=== PATIENT | female | born 1960 | race Caucasian/White ===

== ENCOUNTER 2018-07-12 16:11 | Inpatient (IN) | payer OTHER ==
[~2018-07-12] VITALS: Ht 167.6 cm; Wt 60.5 kg
[2018-07-12] MEDS ORDERED: BAYER CHEWABLE81 MG PO (16:35)
[2018-07-12 16:38] VITALS: BP 148/92; BMI 22.3
[2018-07-12 17:15] LABS: HEMATOCRIT 40.5 % (36.0-48.0); HEMOGLOBIN 13.7 g/dL (12-16); MCH 30.6 pg (26.0-34.0); MCHC 33.8 g/dL (31.0-37.0); MCV 90.6 fL (80.0-100.0); MEAN PLATELET VOLUME 9.5 fL (7.4-10.4); PLATELET COUNT 300 10x3/uL (130-400); RBC 4.47 10x6/uL (4.00-5.40); RDW 13.3 % (11.5-14.5); WBC 25.5 10x3/uL (4.8-10.8)
--- NOTE | 2018-07-12 17:16 | NUR ---
22 GUAGE PIV INSERTED X2 STICKS TO L.WRIST. PT SITTING UP IN BEDSIDE CHAIR A DIRECT ADMIT. AUTO OVERHAULER WORKUP COMPLETED. DISCUSS WITH PRIMARY NURSE JO AT BEDSIDE. NO CURRENT NEEDS. WILL CTM.
[2018-07-12 17:24] LABS: ALBUMIN 3.7 g/dL (3.4-5.0); ANION GAP 14.6 mmol/L (8-16); BILIRUBIN - DIRECT 0.15 mg/dL (0.00-0.30); BILIRUBIN - INDIRECT 0.38 mg/dL (0.00-1.00); BILIRUBIN - TOTAL 0.53 mg/dL (0.2-1.3); CALCIUM 9.4 mg/dL (8.5-10.1); CARBON DIOXIDE 28.3 mmol/L (21.0-32.0); POTASSIUM - SERUM 3.9 mmol/L (3.5-5.1); PROTEIN - SERUM 7.8 g/dL (6.4-8.2)
[2018-07-12 17:49] LABS: EOSINOPHILS 1 % (0-7); LYMPHOCYTES 4 % (15-50); MONOCYTES 5 % (2-11); NEUTROPHILS 90 % (40-80)
[2018-07-12 17:50] LABS: PLATELET ESTIMATE NORMAL; TEAR DROP CELLS 1+
[2018-07-12 19:03] LABS: APPEARANCE CLEAR (CLEAR); BILIRUBIN NEGATIVE (NEGATIVE); COLOR STRAW (YELLOW); GLUCOSE NEGATIVE (NEGATIVE); KETONE NEGATIVE (NEGATIVE); NITRITE NEGATIVE (NEGATIVE); PROTEIN NEGATIVE (NEGATIVE); SPECIFIC GRAVITY 1.005 (1.005-1.020); UROBILINOGEN NORMAL (NORMAL)
--- NOTE | 2018-07-12 19:30 | NUR ---
RECEIVED REPORT, WILL ASSUME CARE OF PT, PT VISITING WITH FAMILY, ASKING IF ORDER ANYTHING FOR PAIN, TOLD HER HE ORDER NORCO, BED IS LOW, SRX2, CALL LIGHT IN REACH, WILL CONTINUE PLAN OF CARE
[2018-07-12 20:00] VITALS: BP 120/71
--- NOTE | 2018-07-12 20:18 | HP ---
PATIENT: DINA AJ MEDICAL RECORD: [id number] ACCOUNT: [id number] LOCATION:[address] : 58 ADMISSION DATE: 07/12/18 PCP: FREDDY LAWSON MD HISTORY AND PHYSICAL EXAMINATION REASON FOR ADMISSION: Chest pain with cough and fevers. HISTORY OF PRESENT ILLNESS: The patient is a 58-year-old female who was seen in the office last week for presumed pneumonia. She had developed dry cough and fever as high as 101.5. She was tested for the flu and negative and then noted to have increasing left pleuritic chest pain. Chest x-ray showed early left lower lobe infiltrate. Her sat was 99% at that time and she was not ill appearing and was treated with IM Rocephin times 2 doses serially and Zithromax. She improved to the point of being afebrile over the weekend; but this morning, developed fever again to 101-102, increasing chest pain, and productive cough. Her sats are now down to 94%. Chest x-ray shows progression of left lobe infiltrate and now has pleural effusion. She is now being admitted for inpatient therapy for community-acquired pneumonia. PAST MEDICAL HISTORY: Hypothyroidism, rheumatoid arthritis, osteoporosis, remote history of granulomatous pneumonia, and acne. PAST SURGICAL HISTORY: Tubal ligation. SOCIAL HISTORY: She is . Nonsmoker and nondrinker. 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 FAMILY HISTORY: Father is alive, history of arthritis. Mother is alive with history of Fuchs endothelial corneal dystrophy. Maternal grandmother with colon cancer. MEDICATIONS: Levothyroxine 112 mcg p.o. q.a.m. a.c.; aspirin 81 mg p.o. daily; spironolactone 50 mg daily; and Plaquenil 200 mg daily, which she has not taken in the last few days. ALLERGIES: SULFONAMIDES AND HYCODAN. REVIEW OF SYSTEMS: GENERAL: She has had poor appetite for 2 weeks with intermittent fever as high as 101.5 yesterday. She is fatigued. HEENT: No recent visual change, sinus congestion, sore throat, or hearing difficulty. RESPIRATORY: Intense pleuritic pain in her left anterior chest and flank on deep inspiration. She has had cough that has been mildly productive. Denies hemoptysis. She has shortness of breath when she walks. Pain is worse on lying flat on her left side. CARDIAC: No palpitations, PND, or orthopnea. GASTROINTESTINAL: Some nausea. No vomiting, change in stools, blood per rectum, or diarrhea. GENITOURINARY: No incontinence or dysuria. GYNECOLOGICAL: No vaginal bleeding. 2. MUSCULOSKELETAL: She has had some arthralgias in the lumbar spine with fever. Otherwise, joints have been fairly stable. INTEGUMENT: No rash or itching. PSYCHIATRIC: Denies depressed mood. HISTORY AND PHYSICAL [id number] DINA JA PHYSICAL EXAMINATION: VITAL SIGNS: Her temperature is 99 degrees Fahrenheit, her pulse is 115, her sats are 94% on room air, and blood pressure is 122/84 with weight of 141 pounds and BMI of 22.8 with height of 5 feet 6 inches. GENERAL: The patient appears mildly ill. She is not tachypneic. She is oriented. HEENT: Normocephalic. Eyes are clear. Oropharynx unremarkable. NECK: Supple. CHEST: Clear on the right. In her left lung, she has crackles in the left base with E:A changes posteriorly. She has pain on deep inspiration. No rash appreciated. HEART: Tachycardic without murmur. ABDOMEN: Soft and nontender. EXTREMITIES: No CC&E. NEUROLOGIC: Oriented to person, place, and time. Cranial nerves are intact. Gait normal. SKIN: She has malar flushing, otherwise unremarkable. LABORATORY DATA: Her labs are currently pending. DIAGNOSTIC DATA: Chest x-ray shows left lower lobe infiltrate with pleural effusion progressed from 3 days ago. ASSESSMENT: 1. Community-acquired left lower lobe pneumonia. 2. Left pleural effusion. 3. Pleurisy. 4. Rheumatoid arthritis. PLAN: The patient will hold Plaquenil currently. She will be cultured and placed on IV Levaquin and Zithromax, pulmonary toilet with DuoNeb updrafts. Further workup pending clinical course. TRANSINT:[id number] Voice Confirmation ID: [id number] DOCUMENT ID: [id number] FREDDY LAWSON MD at 2018 CC: [id number] DICTATION DATE: 07/12/18 1646 TENANT SELECTOR: 07/12/18 1807 [place] [address]
--- NOTE | 2018-07-12 22:00 | NUR ---
PT SPOKE WITH DR. LAWSON, HE SAID SHE SHOULD TAKE NORCO, I GAVE ORDER
[2018-07-13] VITALS: BP 97/64
[2018-07-13 04:20] VITALS: BP 94/53
--- NOTE | 2018-07-13 04:46 | NUR ---
I have reviewed this patient and I concur with the Shift Assessment completed by the Licensed Practical Nurse today this shift.
--- NOTE | 2018-07-13 07:00 | NUR ---
RECEIVED BEDSIDE SHIFT REPORT. ASSUMED CARE OF PATIENT. CALL LIGHT WITHIN REACH. PATIENT SITTING UP IN BED WITH EYES OPEN, RESP EVEN AND UNLABORED. NO DISTRESS. COMPLAINS OF PLEURITIC CHEST PAIN. NO DISTRESS.
--- NOTE | 2018-07-13 07:19 | NUR ---
MEDICATED FOR PAIN AT THIS TIME. HERE FOR AM ROUNDS AND WILL ORDER TORADOL IM FOR BETTER PAIN CONTROL.
--- NOTE | 2018-07-13 07:40 | NUR ---
PATIENT OFF UNIT VIA WHEELCHAIR FOR CXR.
--- NOTE | 2018-07-13 08:13 | NUR ---
RETURN TO UNIT FROM RADIOLOGY.
[2018-07-13 08:55] LABS: BASOPHILS 0.1 % (0-2); EOSINOPHILS 0.7 % (0-7); HEMATOCRIT 36.6 % (36.0-48.0); HEMOGLOBIN 12.3 g/dL (12-16); IMMATURE GRANULOCYTES 0.3 % (0-5); LYMPHOCYTES 3.4 % (15-50); MCH 30.6 pg (26.0-34.0); MCHC 33.6 g/dL (31.0-37.0); MEAN PLATELET VOLUME 9.7 fL (7.4-10.4); MONOCYTES 7.2 % (2-11); NEUTROPHILS 88.3 % (40-80); PLATELET COUNT 256 10x3/uL (130-400); RBC 4.02 10x6/uL (4.00-5.40); RDW 13.5 % (11.5-14.5); WBC 18.4 10x3/uL (4.8-10.8)
[2018-07-13 09:05] LABS: ANION GAP 12.9 mmol/L (8-16); CALCIUM 9.1 mg/dL (8.5-10.1); CARBON DIOXIDE 29.2 mmol/L (21.0-32.0); CREATININE - SERUM 1.1 mg/dL (0.6-1.3)
--- NOTE | 2018-07-13 09:05 | NUR ---
TORADOL IM ADMINISTERED AT THIS TIME FOR PAIN TO CHEST. NO DISTRESS. CALL LIGHT WITHIN REACH.
[2018-07-13 09:07] LABS: POTASSIUM - SERUM 3.1 mmol/L (3.5-5.1)
[2018-07-13 12:15] VITALS: BP 120/72
[2018-07-13 12:42] VITALS: BMI 22.4
--- NOTE | 2018-07-13 14:20 | NUR ---
SHOWER COMPLETE. IV FLUIDS RECONNECTED AND INFUSING ORDERED.
--- NOTE | 2018-07-13 14:29 | NUR ---
K+ SUPPLEMENT INITIATED AT THIS TIME. NO DISTRESS.
[2018-07-13 15:37] VITALS: BP 128/78
--- NOTE | 2018-07-13 17:10 | NUR ---
MEDICATED FOR PAIN AT THIS TIME. NO DISTRESS.
--- NOTE | 2018-07-13 17:43 | NUR ---
AT BEDSIDE WITH PATIENTS . RECOMMENDED INCENTIVE SPIROMETER AND FLUTTER VALVE FOR PATIENT AND IF NO IMPROVEMENT MAY SUGGEST A CT SCAN. RESPIRATORY THERAPY MADE AWARE OF NEW ORDERS.
--- NOTE | 2018-07-13 19:10 | NUR ---
AWAKE AND ALERT BED LOW AND CALL [facility] IN REACH PT IS ASKING FOR TORADOL. LCTA PULSES PRESENT. D5 AND 1/2 TO LFA AT 1OO. ASSISTED WITH COMFORT AND PROVIDED PT EDUCATION
[2018-07-13 20:38] VITALS: BP 113/72
[2018-07-13 23:40] VITALS: BP 115/73
--- NOTE | 2018-07-14 03:51 | NUR ---
I have reviewed this patient and I concur with the Shift Assessment completed by the Licensed Practical Nurse today this shift.
[2018-07-14 05:21] VITALS: BP 120/72
--- NOTE | 2018-07-14 07:20 | NUR ---
PT SITTING UP IN BED. ALERT AND ORIENTED. AT BEDSIDE. PT HAS NO FURTHER NEEDS AT THIS TIME. BED LOW. CL IN REACH. WILL CONTINUE [facility] PLAN OF CARE.
--- NOTE | 2018-07-14 10:10 | NUR ---
PT TAKEN FOR SCAN VIA WC.
[2018-07-14 13:09] VITALS: BP 109/63
--- NOTE | 2018-07-14 14:19 | NUR ---
I have reviewed this patient and I concur with the Shift Assessment completed by the Licensed Practical Nurse today this shift.
--- NOTE | 2018-07-14 15:00 | NUR ---
PT TOOK SHOWER BY SELF AND CHANGED INTO CLEAN SCRUBS.
--- NOTE | 2018-07-14 15:26 | NUR ---
CALLED FOR MEDIUM PAIR OF SCRUBS.
[2018-07-14 17:03] VITALS: BP 121/81
--- NOTE | 2018-07-14 19:20 | NUR ---
AWAKE WIT VISITOR IN ROOM SR X2 AND CALL LIGHT IN REACH BED IS LOW...PT EXPRESSES NEED FOR TYLENOL AND SLEEP AID CLOSER TO 9PM. LCTA AND SKIN WARM AND DRY BOWEL SOUNDS X2
[2018-07-14 20:57] VITALS: BP 121/78
--- NOTE | 2018-07-14 21:49 | NUR ---
UP WALKING THE PICAYUNE AROUND THE UNIT AND TOLERATING WELL.
[2018-07-14 23:59] VITALS: BP 130/89
--- NOTE | 2018-07-15 02:36 | NUR ---
I have reviewed this patient and I concur with the Shift Assessment completed by the Licensed Practical Nurse today this shift.
--- NOTE | 2018-07-15 02:39 | NUR ---
I have reviewed this patient and I concur with the Shift Assessment completed by the Licensed Practical Nurse today this shift.
[2018-07-15 05:27] VITALS: BP 121/79
[2018-07-15 05:48] LABS: BASOPHILS 0.1 % (0-2); EOSINOPHILS 1.6 % (0-7); HEMATOCRIT 33.6 % (36.0-48.0); HEMOGLOBIN 11.4 g/dL (12-16); IMMATURE GRANULOCYTES 0.4 % (0-5); MCH 30.2 pg (26.0-34.0); MCHC 33.9 g/dL (31.0-37.0); MCV 89.1 fL (80.0-100.0); MEAN PLATELET VOLUME 9.9 fL (7.4-10.4); MONOCYTES 6.9 % (2-11); PLATELET COUNT 259 10x3/uL (130-400); RBC 3.77 10x6/uL (4.00-5.40); RDW 13.7 % (11.5-14.5); WBC 16.4 10x3/uL (4.8-10.8)
[2018-07-15 05:51] LABS: ANION GAP 10.7 mmol/L (8-16); CALCIUM 9.2 mg/dL (8.5-10.1); CARBON DIOXIDE 28.3 mmol/L (21.0-32.0); PROTEIN - SERUM 6.8 g/dL (6.4-8.2)
[2018-07-15 05:59] LABS: APTT 29.3 SECONDS (22.8-39.4); INR 1.37 (0.85-1.17); PROTIME 16.3 SECONDS (11.6-15.0)
--- NOTE | 2018-07-15 07:37 | NUR ---
ROUNDING DONE WITH PATIENT BEING NPO FOR PROCEDURE TODAY. LEFT FA PIV SEEN WITH D 5 1/2 NS INFUSING AT 50 CC/HR. ON EP, K+ IS 4.0. ROOM AIR. DENIES NEEDS. WILL CONTINUE TO MONITOR FOR NEEDS.
[2018-07-15 09:07] VITALS: BP 147/82
--- NOTE | 2018-07-15 09:34 | NUR ---
TO RADIOLOGY VIA BED.
--- NOTE | 2018-07-15 11:00 | NUR ---
RETURNS FROM IR WITH LEFT POSTERIOR CHEST TUBE IN PLACE. SET AT 20 CM SUCTION, DRESSING IS C/D/I. POPSICLE GIVEN PER REQUEST.
[2018-07-15 11:38] LABS: PROTEIN - BODY FLUID 4.4 G/DL
[2018-07-15 12:44] VITALS: BP 124/79
--- NOTE | 2018-07-15 13:10 | NUR ---
DENIES NEEDS POST LUNCH. BRUSHING TEETH, STILL ON BED REST. MOTHER IS AT BEDSIDE.
[2018-07-15 13:34] LABS: NEUT - BF 98 %
--- NOTE | 2018-07-15 15:06 | NUR ---
ASSSITED TO BSC TO VOID, VOIDS EASILY.
--- NOTE | 2018-07-15 16:43 | NUR ---
NORCO 1 TAB GIVEN FOR PAIN TO BACK 10/04.
[2018-07-15 17:09] VITALS: BP 136/83
--- NOTE | 2018-07-15 19:15 | NUR ---
REPORT RECIEVED AND ROUNDING COMPLETE PT LAYING IN BED ON RIGHT SIDE. PT VISTING WIHT HER . PT HAS CHEST TUBE IN LEFT POST 20 METER SUCTION. INCISION C/D/I. PT ALERT AND ORIENTED. PT STATES NO NEEDS AT THIS TIME CALL LIGHT WITHIN REACH AND BED IN LOWEST POSTION.
[2018-07-15 20:00] VITALS: BP 126/87
[2018-07-16] VITALS: BP 111/72; BP 118/74
--- NOTE | 2018-07-16 00:32 | NUR ---
PT COMPLAINS OF BACK PAIN. PAIN MEDS GIVEN.
--- NOTE | 2018-07-16 02:25 | NUR ---
I have reviewed this patient and I concur with the Shift Assessment completed by the Licensed Practical Nurse today this shift.
[2018-07-16 04:00] VITALS: BP 113/80
[2018-07-16 06:40] LABS: BASOPHILS 0.2 % (0-2); EOSINOPHILS 3.6 % (0-7); HEMATOCRIT 32.3 % (36.0-48.0); HEMOGLOBIN 10.9 g/dL (12-16); IMMATURE GRANULOCYTES 0.2 % (0-5); LYMPHOCYTES 8.8 % (15-50); MCH 30.3 pg (26.0-34.0); MCHC 33.7 g/dL (31.0-37.0); MCV 89.7 fL (80.0-100.0); MEAN PLATELET VOLUME 9.4 fL (7.4-10.4); MONOCYTES 8.8 % (2-11); NEUTROPHILS 78.4 % (40-80); PLATELET COUNT 262 10x3/uL (130-400); RDW 13.9 % (11.5-14.5); WBC 11.3 10x3/uL (4.8-10.8)
--- NOTE | 2018-07-16 07:51 | NUR ---
PT REQUESTS PAIN PILLS. PLESANT DEMENOR.
[2018-07-16 08:17] VITALS: BP 135/78
--- NOTE | 2018-07-16 08:48 | NUR ---
IR ADMINED CATH. TURNED OFF CHEST TUBE. WILL TURN BACK ON AT [id number]
[2018-07-16 09:16] LABS: IMMUNOGLOBULIN A 193 mg/dL (87-352); IMMUNOGLOBULIN G 631 mg/dL (700-1600)
--- NOTE | 2018-07-16 11:09 | NUR ---
I have reviewed this patient and I concur with the Shift Assessment completed by the Licensed Practical Nurse today this shift.
--- NOTE | 2018-07-16 11:12 | NUR ---
RESTARTED SUCTION @20MM/HR.
[2018-07-16 12:22] VITALS: BP 136/74
--- NOTE | 2018-07-16 14:24 | NUR ---
Regular diet with 75% average po intake Some visitors bringing in foods from outside the hospital Some nausea/vomiting reported by pt Provided pt cafe menu to increase options Reviewed chart RD following
[2018-07-16 16:08] VITALS: BP 133/78
[2018-07-16 17:09] LABS: ACID FAST SMEAR Negative (()); AFB SPECIMEN PROCESSING Not Indicated (())
[2018-07-16 18:08] LABS: ANA REFLEX - DIRECT Negative (Negative)
[2018-07-16 20:00] VITALS: BP 115/70
--- NOTE | 2018-07-16 20:48 | NUR ---
INITIASL ORUNDS COMPLETED AT 1915 HRS. PT DENIED ANY DISCOMFORT. ASSESSMENT COMPLETED AT 2000 HRS. VSS. ALERT AND ORIENTED TO PERSON, PLACE AND TIME. KAY. LUNGS DIMINISHED IN BASES BILAT. CT TO L BACK AT 20CM SUCTION DRAINING SMALL AMOUNT OF SEROUS FLUID. NOROCO PO GIVEN AT 2000 HRS FOR C/O INCISINAL PAIN. WILL CONTINUE TO MONITOR. SR UP X2, CALL LIGHT WITHIN REACH.
--- NOTE | 2018-07-16 21:36 | NUR ---
PM MED GIVEN. JELLO GIVEN PER REQUEST. CALL LIGHT WITHIN REACH.
--- NOTE | 2018-07-16 22:57 | NUR ---
PT RESTING WITH EYES CLOSED. RESP EVEN AND REGULAR. SR UP X2, CALL LIGHT WTHIN REACH.
--- NOTE | 2018-07-17 00:59 | NUR ---
ZOFRAN 4MG PO GIVEN FOR C/O NAUSEA. WILL CONTINUE TO MONITOR.
--- NOTE | 2018-07-17 02:04 | NUR ---
NOROC 5/325 PO GIVEN FOR C/O INCISIONAL PAIN. SR UP X2,CALL LIGHT WITHIN REACH.
--- NOTE | 2018-07-17 04:02 | NUR ---
PT AWAKE; NO DISTRESS NOTED. STATES HAS MINOR PAIN AT THIS TIME. SR UP X2, CALL LIGHT WITHIN REACH.
[2018-07-17 04:23] VITALS: BP 108/68
[2018-07-17 05:55] LABS: CALC OSMOLALITY 269 mosm/kg (275-300); CALCIUM 8.3 mg/dL (8.5-10.1); CARBON DIOXIDE 26.5 mmol/L (21.0-32.0); CHLORIDE - SERUM 101 mmol/L (98-107); CREATININE - SERUM 0.8 mg/dL (0.6-1.3); GLUCOSE 88 mg/dL (74-106); POTASSIUM - SERUM 3.8 mmol/L (3.5-5.1); SODIUM 136 mmol/L (136-145); UREA NITROGEN 9 mg/dL (7-18); eGFR NON AFRICAN AMERICAN 78 mL/min (90-120)
--- NOTE | 2018-07-17 06:34 | NUR ---
VSS THROUGHOUT NIGHT. PT STATES NORCO CONTROLS PAINA ND ZOFRAN CONTROLS NAUSEA. NEEDS MET; CALL LIGHT WITHIN REACH.
--- NOTE | 2018-07-17 07:27 | NUR ---
PT AWAKE WHEN I ENTERED, NO COMPLAINTS OR CONCERNS. STATES HER APIN IS MUCH MORE UNDER CONTROL TODAY. CL IN REACH. SRX 2.
[2018-07-17 09:23] VITALS: BP 116/74
[2018-07-17 11:38] VITALS: BP 120/72
[2018-07-17 13:46] LABS: BASOPHILS 0.2 % (0-2); HEMATOCRIT 38.1 % (36.0-48.0); IMMATURE GRANULOCYTES 0.6 % (0-5); LYMPHOCYTES 4.9 % (15-50); MCH 30.7 pg (26.0-34.0); MCHC 34.4 g/dL (31.0-37.0); MCV 89.2 fL (80.0-100.0); MEAN PLATELET VOLUME 8.8 fL (7.4-10.4); MONOCYTES 8.6 % (2-11); NEUTROPHILS 83.7 % (40-80); RBC 4.27 10x6/uL (4.00-5.40); RDW 13.5 % (11.5-14.5)
[2018-07-17 13:51] LABS: HEMOGLOBIN 13.1 g/dL (12-16); PLATELET COUNT 318 10x3/uL (130-400); WBC 16.2 10x3/uL (4.8-10.8)
--- NOTE | 2018-07-17 15:02 | NUR ---
I have reviewed this patient and I concur with the Shift Assessment completed by the Licensed Practical Nurse today this shift.
[2018-07-17 16:15] VITALS: BP 112/71
[2018-07-17 20:00] VITALS: BP 108/62
--- NOTE | 2018-07-17 21:38 | NUR ---
INITIAL ROUNDS COMPLETED AT 1915 HRS. PT DENIED ANY DISCOMFORT. ASSESSMENT COMPLETED AT 2014 HRS. VSS. IV TO RFA SL. LUNGS DIMINISHED IN BASES BILAT. CT TO L LACK CLEAN, DRY AND INTACT DRAINING SMALL AMOUNTS OF SEROUS FLUID. PM MEDS GIVEN INCLUDING NORCO FOR C/O INCISIONAL PAIN. SR UP X2, CALL LIGHT WITHIN REACH.
--- NOTE | 2018-07-17 22:35 | NUR ---
PT RESTING WITH EYES CLOSED. RESP EVEN AND REGULAR. SR UP X2, CALL LIGHT WITHIN REACH.
[2018-07-18] VITALS: BP 110/771
--- NOTE | 2018-07-18 00:03 | NUR ---
PT RESTING WITH EYES CLOSED. RESP EVEN AND REGULAR. SR UP X2, CALL LIGHT WITHIN REACH.
--- NOTE | 2018-07-18 02:16 | NUR ---
VANC 1.25 GRAM IVPB INITIALTED. NO DISTRESS NOTED. CALL LIGHT WITHIN REACH.
[2018-07-18 03:00] VITALS: BP 112/79
--- NOTE | 2018-07-18 04:15 | NUR ---
PT AWAKE; STATES HAS MINIMAL PAIN. SR UP X2, CALL LIGHT WITHIN REACH.
--- NOTE | 2018-07-18 06:00 | NUR ---
VSS THORUGHOUT NIGHT. HAD C/O INTERMITTENT ACID REFLUX. AM PROTONIX GIVEN. NEEDS MET; WILL CONTINUE TO MONITOR.
[2018-07-18 06:14] LABS: ANION GAP 10.5 mmol/L (8-16); CALCIUM 8.1 mg/dL (8.5-10.1); CARBON DIOXIDE 26.3 mmol/L (21.0-32.0); CREATININE - SERUM 0.9 mg/dL (0.6-1.3); POTASSIUM - SERUM 3.8 mmol/L (3.5-5.1)
[2018-07-18 06:17] LABS: BASOPHILS 0.1 % (0-2); EOSINOPHILS 2.4 % (0-7); HEMATOCRIT 34.2 % (36.0-48.0); HEMOGLOBIN 11.7 g/dL (12-16); IMMATURE GRANULOCYTES 0.7 % (0-5); MCH 30.3 pg (26.0-34.0); MCHC 34.2 g/dL (31.0-37.0); MCV 88.6 fL (80.0-100.0); MEAN PLATELET VOLUME 9.1 fL (7.4-10.4); MONOCYTES 8.1 % (2-11); NEUTROPHILS 83.7 % (40-80); PLATELET COUNT 321 10x3/uL (130-400); RBC 3.86 10x6/uL (4.00-5.40); RDW 13.5 % (11.5-14.5); WBC 15.2 10x3/uL (4.8-10.8)
--- NOTE | 2018-07-18 07:17 | NUR ---
PT AWAKE/ORIENTED. CL IN REACH. SRX2. NO CONCERNS/COMPLAINTS AT THIS TIME.
--- NOTE | 2018-07-18 09:06 | MORECARE ---
CASE MANAGEMENT DISCHARGE SUMMARY PATIENT: DINA AJ UNIT: [id number] ADM DATE: 07/12/18 AGE: 58 : 58 SEX: F ROOM/BED: D.2130 AUTHOR: JAMIL TUCKER PHYSICIAN: REFERRING PHYSICIAN: FREDDY LAWSON MD DATE OF SERVICE: 07/18/18 Discharge Plan Patient Name: DINA AJ Facility: [facility]:[place] : 1960 Planned Disposition: Home Anticipated Discharge Date: 07/20/18 Discharge Date: Expected LOS: 8 Initial Reviewer: [email or web address] Initial Review Date: 07/18/2018 Generated: 07/18/18 10:06 am Patient Name: DINA AJ Page 12526 at 0906 All edits/amendments must be made on the electronic document DICTATION DATE: 07/18/18905 MATERIALS HANDLING EQUIPMENT OPERATOR: PERRY 07/18/18905 RPT#: [id number] DC DATE: STATUS: ADM IN [facility] [address] [place] [address] END OF REPORT
--- NOTE | 2018-07-18 09:25 | MORECARE ---
CASE MANAGEMENT DISCHARGE SUMMARY PATIENT: DINA AJ UNIT: [id number] ADM DATE: 07/12/18 AGE: 58 : 58 SEX: F ROOM/BED: D.2130 AUTHOR: JAMIL TUCKER PHYSICIAN: REFERRING PHYSICIAN: FREDDY LAWSON MD DATE OF SERVICE: 07/18/18 Discharge Plan Patient Name: DINA AJ Facility: [facility]:[place] : 1960 Planned Disposition: Home Anticipated Discharge Date: 07/20/18 Discharge Date: Expected LOS: 8 Initial Reviewer: [email or web address] Initial Review Date: 07/18/2018 Generated: 07/18/18 10:25 am Comments DCP- Discharge Planning Updated by [email or web address]: Griselda Myers on 07/18/18 8:[address] Patient Name: DINA AJ Admission Status: Elective Accout number: [id number] Admission Date: 07-12-2018 : 1960 Admission Diagnosis:CHEST PAIN, UNSPECIFIED Attending: FREDDY LAWSON Current LOS: 6 Anticipated DC Date: 07-20-2018 Planned Disposition: Home Primary Insurance: [id number] Discharge Planning Comments: CM MET WITH PATIENT REGARDING D/C NEEDS AND PLANS. PATIENT STATED SHE LIVES WITH HER SPOUSE (KHARI) AND HE WILL DRIVE HER HOME AT DISCHARGE. PATIENT STATED SHE HAS 1 STEP TO ENTER HER HOME. PATIENT STATED SHE IS INDEPENDENT WITH HER CARE AND HAS NO DME AT HOME. PATIENTS PCP IS DR. LAWSON AND PHARMACY IS [facility]. PATIENT REFUSED HOME HEALTH AT THIS TIME. CM WILL CONTINUE TO FOLLOW PATIENT WITH D/C NEEDS AND PLANS. PCP DR[facility] K[facility]AR[facility] (SPOUSE) [phone] Wild Life Photographer: Griselda Myers DCPIA - Discharge Planning Initial Assessment Updated by [email or web address]: Griselda Myers on 07/18/18 9:19 am * Is the patient Alert and Oriented? Yes * How many steps to enter\exit or inside your home? * PCP DR. LAWSON * Pharmacy [facility] * Preadmission Environment Home with Family * ADLs Independent * Equipment None * List name and contact numbers for known caregivers / representatives who currently or will assist patient after discharge: Khari Aj (spouse) [phone] * Verbal permission to speak to the caregivers and representatives has been obtained from the patient. Yes * Community resources currently utilized None * Additional services required to return to the preadmission environment? Yes * Can the patient safely return to the preadmission environment? Yes * Has this patient been hospitalized within the prior 30 days at any hospital? No Last DP export: 07/18/18 8:06 a Patient Name: DINA AJ Page 66601 at 0925 All edits/amendments must be made on the electronic document DICTATION DATE: 07/18/18924 RESEARCH ENVIRONMENTAL SCIENTIST: DM 07/18/18924 RPT#: [id number] DC DATE: STATUS: ADM IN [facility] [address] [place] [address] END OF REPORT
[2018-07-18 09:27] VITALS: BP 110/63
--- NOTE | 2018-07-18 10:27 | NUR ---
PT WANTED TO GO FOR A WALK. HAS HAD NO CHESTTUBE OUTPUT, UNHOOKED FROM SUCTION SO SHE COULD STRETCH HER LEGS. PT FEELS BETTER UP AND ABOUT. FRIEND WAKLING WITH HER, INSTRUCTED ON HOW TO CARRY THE BOX.
[2018-07-18 11:56] VITALS: BP 115/68
--- NOTE | 2018-07-18 17:09 | NUR ---
PT UP WALKING THE HALLS, HAS DONE SO PERIODICALLY THROUGHOUT THE DAY. SCUTION DISCONNECTED AND RECONNECTED EACH TIME PER PROTOCOL. FRIENDS HAVE BEEN ASSISTING THE PT DURING THESE SEBATICALS. PT REPORTS NO COMPLAINTS/CONCERNS AT THIS TIME. PT IS A/O, UP AD [place] WITH NO DIFFICULTIES AMBULATING.
[2018-07-18 20:00] VITALS: BP 121/64
--- NOTE | 2018-07-18 23:04 | NUR ---
INITIAL ROUNDS COMPLETED AT 1915 HRS. PT DENIED ANY DISCOMFORT. PT STATED SHE THOUGHT HER HR WAS ELEVATED AT 1955. PT PLACED ON TELEMETRY WITH UCAF WITH RVR NOTED HR 206. RAPID RESPONSE CALLED. BP AND O2 SAT STABEL. VA VAL NOTIFIED AND NEW ORDERS RECEIVED AND NOTED. CARDIZEM 20MG BOLUS SIVP GIVEN AND CARDIZEM DRIP INITIATED AT 10MG/HR TO RFA AT 2040 HRS. ASSESSMENT COMPLETED AT THAT TIME. LUNGS DIMINISHED IN BASES BILAT. ALERT AND ORIENTED TO PERSON, PLACE AND TIME. CT TO L BACK CLEAN, DRY AND INTACT. FAMILY AT BEDSIDE. HR DONE TO 150'S TO 160'S AFTER [address] CORTES CONSULTED AT 2145 HRS. INFORMED OF CONSULT, PT'S HISTORY, VS , CARDIZEM BOLUS AND DRIP AT 10MG/HR AND OVERALL STATUS. NEW ORDERS RECEIVED AND NOTED. DR SANTOS CALLED NURSES STATION FOR UPDATE ON PT. CARDIZEM 20MG BOLUS SIVP GIVEN AT 2201 HRS. HR CURRENTLY 120'S TO 130'S UCAF. BP 96/77. FAMILY AT BEDSIDE.
--- NOTE | 2018-07-18 23:20 | NUR ---
PT CONVERTED TO SR HR 88. BP 96/66. PT STATES FEELS BETTER. FRIEND AT BEDSIDE.
--- NOTE | 2018-07-19 00:23 | NUR ---
ASSISTED PT TO BR. VOIDED 200CC OF YELLOW URINE. ASSISED BACK T BED. SR PER CM HR 73. FRIEND AT BEDSIDE. CALL LIGHT WITHIN REACH.
[2018-07-19 00:25] VITALS: BP 94/61
[2018-07-19 01:22] VITALS: BP 104/64
--- NOTE | 2018-07-19 01:34 | NUR ---
IV STARTED #22 TO L HAND WITH ATTEMPT X1 FOR IVAB. PT TOLERATED WELL. BP 104/64. HR 71 SR. WILL CONTINUE TO MONITOR.
--- NOTE | 2018-07-19 02:51 | NUR ---
SR PER CM HR 69. VANCOMYCIN INFUSING TO L HAND IV. CALL LIGHT WITHIN REACH.
[2018-07-19 04:25] VITALS: BP 106/64
--- NOTE | 2018-07-19 04:52 | NUR ---
SR PER CM HR 68. PT RESTING WITH EYES CLOSED. RESP EVEN AND REGULAR. SR UP X2, CALL LIGHT WITHIN REACH.
[2018-07-19 05:25] LABS: BASOPHILS 0.2 % (0-2); EOSINOPHILS 3.4 % (0-7); HEMATOCRIT 31.2 % (36.0-48.0); HEMOGLOBIN 10.7 g/dL (12-16); IMMATURE GRANULOCYTES 0.9 % (0-5); LYMPHOCYTES 7.3 % (15-50); MCH 30.5 pg (26.0-34.0); MCHC 34.3 g/dL (31.0-37.0); MCV 88.9 fL (80.0-100.0); MEAN PLATELET VOLUME 8.8 fL (7.4-10.4); MONOCYTES 7.9 % (2-11); NEUTROPHILS 80.3 % (40-80); PLATELET COUNT 317 10x3/uL (130-400); RBC 3.51 10x6/uL (4.00-5.40)
[2018-07-19 05:33] LABS: CALC OSMOLALITY 268 mosm/kg (275-300); CARBON DIOXIDE 26.2 mmol/L (21.0-32.0); CHLORIDE - SERUM 101 mmol/L (98-107); CREATININE - SERUM 0.7 mg/dL (0.6-1.3); GLUCOSE 101 mg/dL (74-106); POTASSIUM - SERUM 3.7 mmol/L (3.5-5.1); SODIUM 135 mmol/L (136-145); UREA NITROGEN 9 mg/dL (7-18); eGFR NON AFRICAN AMERICAN > 90 mL/min (90-120)
--- NOTE | 2018-07-19 05:51 | NUR ---
IV TO RFA RED AND TENDER. DC'D WITH CATHETER INTACT. CARDIZEM DRIP TO L HAND IV. CALL LIGHT WITHIN REACH. SR PER CM HT 75. BP 106/64. NEEDS MET; WILL CONTINUE TO MONITOR.
[2018-07-19 08:30] VITALS: BP 109/69
[2018-07-19 12:02] VITALS: BP 106/67
--- NOTE | 2018-07-19 12:50 | NUR ---
HOOKED THE CHEST TUBE BACK UP TO SUCTION. 150 ML OF SEROUS DRAINAGE NOTED WITHIN 5 MINUTES.PATINET WITH NO COPLAINTS OF PAIN AND OR SHORTNESS OF BREATH AT THIS TIME. PATIENT STATED THAT SOME OF THE PRESSURE INHER CHEST HAS BEEN RELIEVED AND SHE FEELS BETTER SLIGHTLY.
[2018-07-19 14:11] LABS: FUNGUS STAIN Final report (())
--- NOTE | 2018-07-19 19:16 | NUR ---
ASSESSMENT COMPLETE, PT A&O. RESPERATIONS NON LABORED ON RA. LEFT CHEST TUBE TO LIS, WITH SEROSANGUINEOUS FLUID NOTED IN CANISTER. INFORMED THAT TPA WAS GIVEN EARLIER DUE TO PT HAVING SO MUCH OUT PUT. IV TO LEFT HAND WITH NS AT KVO, IV SITE CLEAN AND DRY. 98 SR ON TELEMETRY, INFORMED BY DAY SHIFT NURSE THAT PT HAD BEEN UNCONTROLLED A FIB AND WAS ON A CARDIZEM DRIP AND THE THAT THE DRIP HAD BEEN DISCONTINUED EARLEIR IN THE DAY. PT ASKING FOR TYLENOL FOR C/O PAIN TO ABD. RATES PAIN AT A 3 ON PAIN SCALE. NO OTHER NEEDS EXRESSED AT THIS TIME, BED LOW, CL IN REACH.
[2018-07-19 20:00] VITALS: BP 130/59
--- NOTE | 2018-07-19 21:08 | NUR ---
HS MEDS GIVEN WITH FRESH ICE WATER. HR ELEVATED TO 160. CALL PLACED TO DR SANTOS.
--- NOTE | 2018-07-19 21:15 | NUR ---
SPOKE WITH HECTOR AKBAR AT 5 MG/HR ORDERED.
--- NOTE | 2018-07-19 22:36 | NUR ---
PT RESTING WITH EYES CLOSED, HR 155 UNCONTROLLED A FIB. NO S/S DISTRESS NOTED. FAMILY AT BED SIDE.
--- NOTE | 2018-07-19 23:03 | NUR ---
UP WITH ASSIST TO BR.
[2018-07-20] VITALS (50 sets, daily range): BP systolic 86–116; BP diastolic 38–72
--- NOTE | 2018-07-20 02:10 | NUR ---
CALL PLACED TO DR SANTOS, INFORMED HIM THAT PTS HEART RATE IS STILL ELEVATED, RUNNING FROM 130 - 170 UNCONTROLLED A FIB. OTHER VITALS STABLE, CHERYL 108/70, RESPERATIONS 20, SPO2 95% ON RA. ORDERS GIVEN TO GIVE CARDIZEM 10 MG BOLUS IV TIMES ONE.
[2018-07-20 05:47] LABS: CALC OSMOLALITY 269 mosm/kg (275-300); CALCIUM 7.8 mg/dL (8.5-10.1); CARBON DIOXIDE 30.2 mmol/L (21.0-32.0); CHLORIDE - SERUM 101 mmol/L (98-107); CREATININE - SERUM 0.7 mg/dL (0.6-1.3); GLUCOSE 86 mg/dL (74-106); POTASSIUM - SERUM 3.7 mmol/L (3.5-5.1); SODIUM 136 mmol/L (136-145); THYROID STIMULATING HORMONE 9.29 uIU/mL (0.36-3.74); UREA NITROGEN 10 mg/dL (7-18); eGFR NON AFRICAN AMERICAN > 90 mL/min (90-120)
[2018-07-20 05:53] LABS: BASOPHILS 0.3 % (0-2); EOSINOPHILS 4.3 % (0-7); HEMATOCRIT 32.7 % (36.0-48.0); HEMOGLOBIN 11.2 g/dL (12-16); IMMATURE GRANULOCYTES 1.1 % (0-5); LYMPHOCYTES 9.7 % (15-50); MCH 30.8 pg (26.0-34.0); MCHC 34.3 g/dL (31.0-37.0); MCV 89.8 fL (80.0-100.0); MEAN PLATELET VOLUME 8.9 fL (7.4-10.4); MONOCYTES 9.3 % (2-11); NEUTROPHILS 75.3 % (40-80); RBC 3.64 10x6/uL (4.00-5.40); RDW 14.1 % (11.5-14.5); WBC 11.2 10x3/uL (4.8-10.8)
[2018-07-20 06:24] LABS: PLATELET COUNT 400 10x3/uL (130-400)
[2018-07-20 08:56] LABS: INR 1.07 (0.85-1.17); PROTIME 13.4 SECONDS (11.6-15.0)
--- NOTE | 2018-07-20 11:30 | NUR ---
RECIEVED TO CVICU VIA BED. ALERT AND ORIENTED TO PERSON, PLACE AND TIME. UCAF RATE 177 ON [address] MONITOR. RT CT TO 20CM SUCTION WITH NO AIR LEAK DETECTED. LUIS PITT RN HERE FOR PICC LINE PLACEMENT. PLEUR-EVAC CHANGED AND PLACED BACK ON 20CM SUCTION. NO AIR LEAK DETECTED. PT DENIES ANY PAIN OR NEEDS AT THIS TIME. WILL CONT TO MONITOR.
--- NOTE | 2018-07-20 12:14 | NUR ---
PICC LINE IN 1/2NS STARTED TO PICC AT 30CC/HR VIA PUMP AND CARDIZEM RESTARTED AT 10MG/HR VIA PUMP (NEW BAG AND IV TUBING). WILL CONT TO MONITOR.
--- NOTE | 2018-07-20 13:00 | NUR ---
PT CONTINUE TO BE IN UCAF HR 130-150. ORDER TO REBOLUS AMIODARONE 150MG PER DR MIRZA.
--- NOTE | 2018-07-20 13:30 | NUR ---
DR CORTES HERE TO SEE. NEW ORDERS RECIEVED.
--- NOTE | 2018-07-20 13:41 | NUR ---
LANOXIN 0.5MG IV GIVEN PER ORDERS. WILL CONT TO MONITOR.
--- NOTE | 2018-07-20 15:10 | NUR ---
Nutrition follow-up: Pt now in CVICU due to uncontrolled afib NPO at this time PO intake has been ~75% of meals labs reviewed Wt: 144# RDN following.
--- NOTE | 2018-07-20 15:41 | NUR ---
EYES CLOSED, RESP EVEN AND UNLABORED. AFIB 122 ON THE MONITOR.
--- NOTE | 2018-07-20 16:09 | NUR ---
FAMILY AT BEDSIDE. UPDATE GIVEN
--- NOTE | 2018-07-20 19:41 | NUR ---
1615-RECIVED AWAKE AND ALERT FAMILY AT [facility]-L LATERAL CHEST TUBE TO 20CM SUCTION -NO AIR LEAK AT THIS [id number] MIRZA AT [facility]-R PIC LINE INFUSING CARDIZEM 10MG/MIN 1700-ASSISTED TO [facility] COMMODE CHAIR-PT DENIES ANY WEAKNESS OR SOBOE 1730-DR CORTES NOTIFIED OF CONTINUED UCAF 135- REQUESTED BY DR DYER AND YUKI-ADDITIONAL ORDERS RECIEVED-CARDIZEM BOLUS 15MG GIVEN AND PRIMARY IV RATE INCREASED TO 150- 1800-CONTINUED UCAF-125-DR CORTES NOTIFIED OF SAME-ADDITIONAL ORDER RECIEVED TO ADD CORDARONE GTT AT 1MG/MIN FOR 6H THEN DECREASE TO 0.5MG AND CONFIRMED TO CONTINUE CARDIZEM GTT DR MORE AT BEDSIDE-AND ANESTHESIA WORK U;P DONE-PHARMACY NOTIFIED TO HOLD LOVENOX SQ BY DR MORE 1814-FINAL PT UPDATE GIVEN TO DR YUKI DYER AFIB [phone] 104/58
--- NOTE | 2018-07-20 19:41 | NUR ---
REPORT RECEIVED, SHIFT ASSESSMENT COMPLETED PER FLOW SHEET. AAOX4. PPP. RT UPPER ARM PICC LINE PATENT, NO SIGNS OF INFECTION OR INFILTRATION. LT HAND PIV SALINE LOCKED, NO SIGNS OF INFECTION OR INFILTRATION. LT LATERAL CT TO 20 CM SUCTION, NO AIR LEAK, DRESSING C/D/I. DENIES NEEDS. CALL LIGHT WITHIN REACH. SEE FLOW SHEET FOR COMPLETE ASSESSMENT. WILL CONTINUE TO MONITOR.
--- NOTE | 2018-07-20 20:18 | NUR ---
ASSISSTED TO BEDPAN PER PATIENT'S REQUEST, 200 MLS YELLOW UOP NOTED, CLEANED AND REPOSITIONED IN BED. DENIES OTHER NEEDS. FRIEND HERE FOR VISITING HOURS.
--- NOTE | 2018-07-20 20:26 | NUR ---
FRIEND AT BEDSIDE, PATIENT REQUESTING POPSICLE, POPSICLE PROVIDED, DENIES OTHER NEEDS. CALL LIGHT WITHIN REACH.
--- NOTE | 2018-07-20 21:32 | NUR ---
BP IN THE S. CALLED DR. COLLINS WHO IS SALES PRODUCT MANAGER FOR DR. CORTES.
--- NOTE | 2018-07-20 21:35 | NUR ---
DR. COLLINS RETURNED CALL, UPDATE GIVEN ON PATIENT STATUS. INFORMED HIM OF BP IN THE 80'S AND ORDERS FOR LANOXIN. PER HIS ORDERS GIVE LANOXIN, NO OTHER ORDERS.
--- NOTE | 2018-07-20 22:05 | NUR ---
CALL LIGHT ANSWERED ASSISSTED TO BEDPAN PER PATIENT'S REQUEST, 220 MLS YELLOW UOP NOTED, CLEANED, REPOSITIONED IN BED. DENIES OTHER NEEDS. CALL LIGHT WITHIN REACH.
--- NOTE | 2018-07-20 23:01 | NUR ---
REASSESSMENT COMPLETED PER FLOW SHEET, SEE FOR DETAILS. PPP. REMAINS IN AFIB HR 107. ASSISSTED TO BEDPAN PER PATIENT'S REQUEST, 120 MLS YELLOW UOP NOTED, CLEANED. DENIES OTHER NEEDS. CALL LIGHT WITHIN REACH. WILL CONTINUE TO MONITOR.
--- NOTE | 2018-07-20 23:57 | NUR ---
PATIENT CONVERTED TO SINUS RHYTHM ON MONITOR.
[2018-07-21] VITALS (64 sets, daily range): BP systolic 83–124; BP diastolic 41–71
--- NOTE | 2018-07-21 01:41 | NUR ---
CALL LIGHT ANSWERED, ASSISSTED TO BEDSIDE COMMODE, 110 MLS YELLOW UOP, ASSISSTED BACK IN BED, DENIES OTHER NEEDS. CALL LIGHT WITHIN REACH.
--- NOTE | 2018-07-21 03:14 | NUR ---
REASSESSMENT COMPLETED PER FLOW SHEET, SEE FOR DETAILS. TELEMETRY MONITORING HR 64, SINUS RHYTHM. NO ACUTE DISTRESS NOTED. WILL CONTINUE TO MONITOR. CALL LIGHT WITHIN REACH.
--- NOTE | 2018-07-21 04:38 | NUR ---
COMPLETE BED BATH GIVEN, COMPLETE BED LINEN CHANGE PROVIDED, REPOSITIONED IN BED. DENIES OTHER NEEDS. CALL LIGHT WITHIN REACH.
--- NOTE | 2018-07-21 05:02 | NUR ---
PARENTS HERE FOR VISITING HOURS, UPDATE GIVEN, QUESTIONS ANSWERED.
--- NOTE | 2018-07-21 05:40 | NUR ---
DR. CAMERON CALLED TO GIVE PREOP MEDS AT THIS TIME. PHARMACY NOT HERE TO ACKNOWLEDGE NEW ORDERS, CALLED AND INFORMED MUSIC THERAPY SPECIALIST OF THE NEED OF PREOP MEDS, SHE STATES SHE WILL COME UP TO THE UNIT TO PULL THEM FORM PYXIS.
--- NOTE | 2018-07-21 06:38 | NUR ---
OR TEAM HERE, PATIENT OUT OF ROOM FOR AM SURGERY.
[2018-07-21 06:39] LABS: BASOPHILS 0.5 % (0-2); EOSINOPHILS 4.2 % (0-7); HEMOGLOBIN 10.6 g/dL (12-16); IMMATURE GRANULOCYTES 1.4 % (0-5); LYMPHOCYTES 9.1 % (15-50); MCH 29.9 pg (26.0-34.0); MCHC 33.1 g/dL (31.0-37.0); MCV 90.4 fL (80.0-100.0); MEAN PLATELET VOLUME 9.1 fL (7.4-10.4); MONOCYTES 10.3 % (2-11); NEUTROPHILS 74.5 % (40-80); PLATELET COUNT 421 10x3/uL (130-400); RBC 3.54 10x6/uL (4.00-5.40); RDW 14.1 % (11.5-14.5); WBC 10.6 10x3/uL (4.8-10.8)
[2018-07-21 07:00] LABS: CALC OSMOLALITY 269 mosm/kg (275-300); CALCIUM 7.7 mg/dL (8.5-10.1); CARBON DIOXIDE 27.3 mmol/L (21.0-32.0); CHLORIDE - SERUM 101 mmol/L (98-107); CREATININE - SERUM 0.7 mg/dL (0.6-1.3); GLUCOSE 93 mg/dL (74-106); POTASSIUM - SERUM 3.8 mmol/L (3.5-5.1); SODIUM 136 mmol/L (136-145); UREA NITROGEN 8 mg/dL (7-18); eGFR NON AFRICAN AMERICAN > 90 mL/min (90-120)
--- NOTE | 2018-07-21 07:17 | NUR ---
SHIFT REPORT RECEIVED. PT NOT IN ROOM AT THIS TIME.
--- NOTE | 2018-07-21 09:17 | NUR ---
Nutrition Follow up: NPO past MN Pt out of room for VATS now Previously on Regular diet with mostly good po intake based on available documentation Weight 144lb today Admit weight 138lb RD following
--- NOTE | 2018-07-21 11:17 | NUR ---
PT ARRIVE TO UNIT FROM OR AROUND 1052. HAS CT X 2 LEFT LATERAL SIDE. CONNECTED TO 20CM SUCTION WITH INTERMITTENT AIR LEAK. EPIDURAL IN PLACE AT 5ML/HR CONTINOUS INFUSION, PCEA 2.5ML, 15MIN LOCKOUT. DRESSING C/D/I. HAS RIJ WITH PLASMOLYTE AT 100ML/HR, GIBRAN AT 0.5MCG/KG/MIN, DOPAMINE AT 5MCG/KG/MIN, AMIODARONE AT 0.5MG/MIN. HAS HILTON PICC LINE WITH DRESSING CDI. PLACED ON 10L OF 02 VIA SIMPLE MASK. RIGHT RADIAL RANJEET SECURED IN PLACE. PT OPENING EYES. FOLLOWS SIMPLE COMMANDS. BOOGIE IN PLACE WITH YELLOW URINE NOTED. WILL CONTINUE TO MONITOR.
--- NOTE | 2018-07-21 11:27 | NUR ---
DR. MIRZA SAID IT'S OK TO GIVE PT ICE CHIPS AND PO MEDS ONCE SHE IS FULLY AWAKE. HE ALSO WANTS DOPAMINE WEANED OFF.
--- NOTE | 2018-07-21 12:32 | NUR ---
PT RESTING AT THIS TIME. BP IN LOW 100S. O2 DECREASED TO 4L VIA NC. AWAKE AND ALERT. FOLLOWS COMMANDS. RATES PAIN 01/04. WILL CONTINUE TOMONITOR.
--- NOTE | 2018-07-21 13:00 | NUR ---
AWAKE AND ALERT. REPORT PAIN MIDSTERNAL WHEN TAKING DEEP BREATHS. PULLS 500 ON INSENTIVE SPIROMETER. COUGH IS WEAK AT THIS TIME. WILL CONTINUE TO ENCOURAGE COUGH/DEEP BREATHING EXERCISES.
--- NOTE | 2018-07-21 14:00 | NUR ---
RESTING WITH EYES CLOSED. PULLS 1250 ON I.S. GOOD EFFORT WHEN COUGHING AND DEEP BREATHING. ORAL SWABS PROVIDED TO HELP KEEP MOUTH MOISTEN. WILL CONTINUE TO MONITOR.
[2018-07-21 14:13] LABS: IMMUNOGLOBULIN E QNS IU/mL (())
--- NOTE | 2018-07-21 15:15 | NUR ---
PT RESTING COMFORTABLY. ICE CHIPS PROVIDED. NO N/V NOTED AT THIS TIME. DR. DYER CAME BY TO SEE PATIENT. CALL LIGHT IN REACH. NO FURTHER NEEDS. WILL CONTINUE TO MONITOR.
--- NOTE | 2018-07-21 16:34 | NUR ---
LOVENOX INJECTION GIVEN. VERIFIED WITH DR. MIRZA BEFORE ADMINISTERING INJECTION. DOPAMINE WAS TURNED OFF AT 1412. GIBRAN DECREASED TO 0.4MCG/KG/MIN. PO MEDS GIVEN WITH SIPS OF WATER. PT REFUSED MIRALAX AT THIS TIME. WILL CONTINUE TO MONITOR.
--- NOTE | 2018-07-21 17:22 | NUR ---
GIBRAN DECREASED TO 0.25MCG/KG/MIN. VSS. WILL CONTINUE TO WEAN TOLERATED. PT PULLS BETWEEN [phone] ON I.S.
--- NOTE | 2018-07-21 17:30 | NUR ---
CARDIZEM TO CONTINUE OFF PER DR. MIRZA'S ORDERS. HR IN 70S AND 80S NS.
--- NOTE | 2018-07-21 18:05 | NUR ---
GIBRAN TURNED OFF AT THIS TIME. SBP IN 100S. WILL CONTINUE TO MONITOR.
--- NOTE | 2018-07-21 19:05 | NUR ---
REPORT RECEIVED, SHIFT ASSESSMENT COMPLETED PER FLOW SHEET. PPP. RT IJ CVL PATENT, RT UPPER ARM PICC LINE PATENT, NO SIGNS OF INFECTION OR INFILTRATION. PERRLA. LT LATERAL CT X2 TO 20 CM SUCTION, SMALL INTERMITTENT AIR LEAK NOTED, WAS INFORMED BY DAY SHIFT RN THAT SURGEON IS AWARE. LT LATERAL INCISION SITE NOTED, DRESSING C/D/I. EPIDURAL SITE CLEAN AND DRY, INFUSING FENTANYL AT 5 MLS/HR, CALCULATING MACHINE MECHANIC BUTTON FOR ORDERED PRN DOSE WITHIN REACH. TEACHING PROVIDED ON IMPORTANCE OF COUGH/DEEP BREATHING, TURNING, USE OF IS, AND PAIN MANAGEMENT. COUGH WEAK, REPOSITIONED IN BED, PULLING 1500 ON IS X10. DENIES NEEDS. CALL LIGHT WITHIN REACH. WILL CONTINUE TO MONITOR. ORDERES RECEIVED FROM DAY SHIFT RN TO KEEP BP 90-140 PER DOCTOR'S ORDERS.
--- NOTE | 2018-07-21 20:07 | NUR ---
AT BEDSIDE, QUESTIONS ANSWERED, UPDATE GIVEN. PATIENT RESTING COMFORTABLY, NO ACUTE DISTRESS NOTED.
--- NOTE | 2018-07-21 21:00 | NUR ---
REPOSITIONED IN BED, FRIEND AT BEDSIDE, DENIES NEEDS. WILL CONTINUE TO MONITOR.
--- NOTE | 2018-07-21 23:00 | NUR ---
REASSESSMENT COMPLETED PER FLOW SHEET, SEE FOR DETAILS. NO ACUTE DISTRESS NOTED. DENIES NEEDS. CALL LIGHT WITHIN REACH. REPOSITIONED IN BED. WILL CONTINUE TO MONITOR.
[2018-07-22] VITALS (24 sets, daily range): BP systolic 90–122; BP diastolic 42–72; Ht 167.6 cm; Wt 60.5 kg
--- NOTE | 2018-07-22 01:00 | NUR ---
RESTING, NO ACUTE DISTRESS NOTED, WILL CONTINUE TO MONITOR.
--- NOTE | 2018-07-22 03:01 | NUR ---
REASSESSMENT COMPLETED PER FLOW SHEET, SEE FOR DETAILS. WILL CONTINUE TO MONITOR. CALL LIGHT WITHIN REACH.
--- NOTE | 2018-07-22 05:00 | NUR ---
NO ACUTE DISTRESS NOTED, WILL CONTINUE TO MONITOR.
[2018-07-22 06:29] LABS: ALBUMIN 1.8 g/dL (3.4-5.0); ALKALINE PHOSPHATASE 74 U/L (46-116); ALT (SGPT) 27 U/L (10-68); BILIRUBIN - TOTAL 0.26 mg/dL (0.2-1.3); CALC OSMOLALITY 269 mosm/kg (275-300); CALCIUM 7.4 mg/dL (8.5-10.1); CARBON DIOXIDE 26.8 mmol/L (21.0-32.0); CHLORIDE - SERUM 103 mmol/L (98-107); CREATININE - SERUM 0.7 mg/dL (0.6-1.3); GLUCOSE 105 mg/dL (74-106); SODIUM 136 mmol/L (136-145); UREA NITROGEN 8 mg/dL (7-18); eGFR NON AFRICAN AMERICAN > 90 mL/min (90-120)
[2018-07-22 06:31] LABS: BASOPHILS 0.1 % (0-2); EOSINOPHILS 0 % (0-7); HEMATOCRIT 26.7 % (36.0-48.0); IMMATURE GRANULOCYTES 0.6 % (0-5); LYMPHOCYTES 4.6 % (15-50); MCH 30.2 pg (26.0-34.0); MCHC 33.7 g/dL (31.0-37.0); MCV 89.6 fL (80.0-100.0); MEAN PLATELET VOLUME 9.1 fL (7.4-10.4); MONOCYTES 6.3 % (2-11); NEUTROPHILS 88.4 % (40-80); RBC 2.98 10x6/uL (4.00-5.40)
[2018-07-22 06:32] LABS: PLATELET COUNT 334 10x3/uL (130-400); WBC 14.4 10x3/uL (4.8-10.8)
--- NOTE | 2018-07-22 07:15 | NUR ---
AA&OX4. RATES PAIN 2/10 ON LEFT LATERAL CHEST. PAIN AGRAVATED WITH MOVEMENT. CT X 2 ON LEFT LATERAL CHEST TO WATER SEAL PER DR. MIRZA'S ORDERS. INCISION ON BACK C/D/I. EPIDURAL IN PLACE. RIJ WITH PLASMOLYTE AT 30ML/HR AND AMIODARONE AT 0.5MG/MIN. HILTON PICC WITH ZINACEF INFUSING AT 11.4ML/HR. R-RADIAL A-LINE SECURED IN PLACE. BOOGIE IN PLACE WITH YELLOW URINE. ABLE TO MOVE TOES. DENIES HAVING N/V. ON VIA AR. SHIFT ASSESSMENT COMPLETED. SAFETY MEASURES IN PLACE. CALL LIGHT IN REACH. WILL CONTINUE TO MONITOR.
--- NOTE | 2018-07-22 07:40 | NUR ---
R-RADIAL RANJEET DC'D PER ORDERS. PEANUT BUTTER AND CRACKERS PROVIDED. NO N/V REPORTED. WILL CONTINUE TO MONITOR.
--- NOTE | 2018-07-22 09:19 | NUR ---
DR. MORE NOTIFIED OF EPIDURAL MEDICATION BEING LOW AT THIS TIME.
--- NOTE | 2018-07-22 09:55 | NUR ---
AM MEDS GIVEN. DR. MELENDEZ AT BEDSIDE. RESTING COMFORTABLY. NO FURTHER NEEDS. WILL CONTINUE TO MONITOR.
--- NOTE | 2018-07-22 10:10 | NUR ---
SPUTUM SAMPLE COLLECTED AND SENT TO LAB AT THIS TIME.
--- NOTE | 2018-07-22 11:24 | NUR ---
NOON MEDS GIVEN. PICC LINE DRESSING CHANGED AT THIS TIME. PT RESTING COMFORTABLY. NO FURTHER NEEDS. WILL CONTINUE TO MONITOR.
--- NOTE | 2018-07-22 12:30 | NUR ---
DR. DYER AT BEDSIDE. HE WANTS RIJ REMOVED SINCE PT HAS HILTON PICC LINE.
--- NOTE | 2018-07-22 12:37 | NUR ---
SPOKE WITH LOVE TO NOTIFY HER OF DR. DYER'S ORDERS TO DC [facility]. OK TO [facility].
--- NOTE | 2018-07-22 16:32 | NUR ---
1500 REPORT RECIEVED PT ALERT AN DORIENTED ON ROOM AIR VSS DENIES PAIN EPIDURAL IN PLACE LEAF TIER WITHIN REACH L CT X2 TO WATER SEAL, BOOGIE DRAINING YELLOW URINE, CALL LIGHT WITHIN REACH
--- NOTE | 2018-07-22 17:15 | NUR ---
PT ATE 50% DINNER
--- NOTE | 2018-07-22 19:01 | NUR ---
REPORT RECEIVED, SHIFT ASSESSMENT COMPLETED PER FLOW SHEET. AAOX4. PPP. RT UPPER ARM PICC LINE PATENT, DRESSING C/D/I, NO SIGNS OF INFECTION OR INFILTRATION. LT LATERAL CT TO WATER SEAL, INTERMITTENT AIR LEAK NOTED, SEROSANGUINEOUS OUTPUT NOTED. COUGH STRONG, NON-PRODUCTIVE. SEE FLOW SHEET FOR COMPLETE ASSESSMENT. CALL LIGHT WITHIN REACH. WILL CONTINUE TO MONITOR.
--- NOTE | 2018-07-22 21:04 | NUR ---
SCHEDULED MEDS GIVEN, WATER PROVIDED. DENIES OTHER NEEDS. CALL LIGHT WITHIN REACH.
--- NOTE | 2018-07-22 22:37 | NUR ---
CALL LIGHT ANSWERED, ICE CHIPS PROVIDED PER PATIENT'S REQUEST. DENIES OTHER NEEDS.
--- NOTE | 2018-07-22 23:01 | NUR ---
REASSESSMENT COMPLETED PER FLOW SHEET, SEE FOR DETAILS. NO ACUTE CHANGES NOTED. DENIES PAIN OR NEEDS. CALL LIGHT WITHIN REACH. WILL CONTINUE TO MONITOR.
[2018-07-23] VITALS (24 sets, daily range): BP systolic 90–114; BP diastolic 41–66
--- NOTE | 2018-07-23 01:00 | NUR ---
ASSISSTED TO BEDPAN PER PATIENT'S REQUEST, NO BM. REPOSITIONED IN BED. DENIES OTHER NEEDS. CALL LIGHT WITHIN REACH.
--- NOTE | 2018-07-23 03:01 | NUR ---
REASSESSMENT COMPLETED PER FLOW SHEET, SEE FOR DETAILS. NO ACUTE DISTRESS NOTED. DENIES NEEDS. CALL LIGHT WITHIN REACH. WILL CONTINUE TO MONITOR.
--- NOTE | 2018-07-23 05:01 | NUR ---
CALL LIGHT ANSWERED, ASSISSTED TO BEDPAN PER PATIENT'S REQUEST, NO BM. REPOSITIONED IN BED. DENIES OTHER NEEDS.
[2018-07-23 06:33] LABS: HEMATOCRIT 25.7 % (36.0-48.0); HEMOGLOBIN 8.7 g/dL (12-16); MCH 30.1 pg (26.0-34.0); MCHC 33.9 g/dL (31.0-37.0); MCV 88.9 fL (80.0-100.0); RBC 2.89 10x6/uL (4.00-5.40); RDW 14.3 % (11.5-14.5); WBC 12.6 10x3/uL (4.8-10.8)
[2018-07-23 06:54] LABS: ALBUMIN 1.7 g/dL (3.4-5.0); ALKALINE PHOSPHATASE 74 U/L (46-116); ALT (SGPT) 28 U/L (10-68); BILIRUBIN - TOTAL 0.25 mg/dL (0.2-1.3); CALC OSMOLALITY 272 mosm/kg (275-300); CALCIUM 7.2 mg/dL (8.5-10.1); CARBON DIOXIDE 30.4 mmol/L (21.0-32.0); CHLORIDE - SERUM 103 mmol/L (98-107); CREATININE - SERUM 0.7 mg/dL (0.6-1.3); GLUCOSE 96 mg/dL (74-106); POTASSIUM - SERUM 3.6 mmol/L (3.5-5.1); PROTEIN - SERUM 4.8 g/dL (6.4-8.2); SODIUM 137 mmol/L (136-145); UREA NITROGEN 10 mg/dL (7-18); eGFR NON AFRICAN AMERICAN > 90 mL/min (90-120)
--- NOTE | 2018-07-23 11:16 | NUR ---
Nutrition Follow Up: RN in pt's room at the time of RD visit. Interview deferred. Diet: Regular PO Intake: 54% meal avg I<O BM: 07/21/18 Labs and meds reviewed Rec continue current diet. RD following.
--- NOTE | 2018-07-23 15:04 | NUR ---
0745-DR MELENDEZ AT BEDSIDE-L LATERAL CHEST TUBE IDENTIFIED POSTERIOR-REMOVED BY Anne HUITRON RN [facility]- DIRECTED BY DR MELENDEZ-ANTERIOR PLACED TO SINGLE CANNISTER CHEST TUBE COLLECTION-WATER SEAL-L LATERAL CHEST INCISION DRG REMOVED AND LEFT OPEN TO PPP-QFZWHM-TUSX TOLERATED BY PT-EPIDURAL LINE WELL INTACT-AIR OVERLAY INFLATED 1150-DR CAMERON AT [facility]-EPIDURAL LINE D/C'D WITH TIP INTACT-
--- NOTE | 2018-07-23 15:17 | NUR ---
UP TO BEDSIDE CHAIR WITH PHYSICAL THERAPY-STEADY ON LEGS WITH LITTLE ASSISTANCE-NOTIFIED PHARMACY OF CURRENT VANC LEVEL AND DIRECTION GIVEN ASSISTED TO VALDO SELF
--- NOTE | 2018-07-23 23:07 | NUR ---
1900 REPORT RECEIVED CARE ASSUMED. ASSESSMENT DONE SEE FLOW SHEET. IS 1500. VSS. NO SIGNS OF ACUTE DISTRESS NOTED WILL CONTINUE TO MONITOR. 2100 MEDS GIVEN PER MAR. WATER PROVIDED. PT ABLE TO AMBULATED TO BEDSIDE COMMODE NO DIFFICULTY. VSS. 2300 REASSESSMENT DONE SEE FLOW SHEET. PT ABLE TO AMBULATE TO BATHROOM MINIMAL ASSISTANCE GIVEN. VSS. COMPLETE LINEN CHANGE PROVIDED. WILL CONTINUE TO MONITOR.
[2018-07-24] VITALS (10 sets, daily range): BP systolic 95–129; BP diastolic 57–81
--- NOTE | 2018-07-24 01:00 | NUR ---
CALL LIGHT ANSWERED. PT AMBULATED TO BATHROOM MINIMAL ASSISTANCE PROVIDED. VSS. WILL CONTINUE TO MONITOR.
--- NOTE | 2018-07-24 03:00 | NUR ---
REASSESSMENT DONE SEE FLOW SHEET. VSS.
--- NOTE | 2018-07-24 05:00 | NUR ---
PT AMBULATED WELL TO PA AND LATERAL. NO DIFFICULTIES NOTED. VSS. PT SET IN CHAIR. WILL CONTINUE TO MONITOR.
[2018-07-24 06:05] LABS: BASOPHILS 0.4 % (0-2); EOSINOPHILS 6.6 % (0-7); HEMATOCRIT 24.8 % (36.0-48.0); HEMOGLOBIN 8.2 g/dL (12-16); IMMATURE GRANULOCYTES 0.5 % (0-5); LYMPHOCYTES 11.6 % (15-50); MCH 29.6 pg (26.0-34.0); MCHC 33.1 g/dL (31.0-37.0); MCV 89.5 fL (80.0-100.0); MEAN PLATELET VOLUME 8.9 fL (7.4-10.4); MONOCYTES 8.7 % (2-11); NEUTROPHILS 72.2 % (40-80); PLATELET COUNT 375 10x3/uL (130-400); RBC 2.77 10x6/uL (4.00-5.40); RDW 14.4 % (11.5-14.5); WBC 10.2 10x3/uL (4.8-10.8)
[2018-07-24 06:26] LABS: ALBUMIN 1.6 g/dL (3.4-5.0); ALKALINE PHOSPHATASE 76 U/L (46-116); ALT (SGPT) 27 U/L (10-68); BILIRUBIN - TOTAL 0.35 mg/dL (0.2-1.3); CALC OSMOLALITY 272 mosm/kg (275-300); CALCIUM 7.4 mg/dL (8.5-10.1); CARBON DIOXIDE 31.5 mmol/L (21.0-32.0); CHLORIDE - SERUM 103 mmol/L (98-107); CREATININE - SERUM 0.7 mg/dL (0.6-1.3); GLUCOSE 86 mg/dL (74-106); POTASSIUM - SERUM 3.3 mmol/L (3.5-5.1); PROTEIN - SERUM 4.8 g/dL (6.4-8.2); SODIUM 138 mmol/L (136-145); UREA NITROGEN 8 mg/dL (7-18); eGFR NON AFRICAN AMERICAN > 90 mL/min (90-120)
--- NOTE | 2018-07-24 09:47 | NUR ---
0830-DR LAWSON AT [facility]-PT UP IN CHAIR-AMBULATED EASILY-SR ON MONITOR 0900 DR DYER AT [facility] 0930-PT AMBULATED IN HALLWAY WITH PHYSICAL THERAPY EASILY
[2018-07-24] MEDS ORDERED: Nystatin Oral Susp [ PO (11:55)
[2018-07-24] MEDS ORDERED: AUGMENTIN 875-11 TAB PO (11:55)
[2018-07-24] MEDS ORDERED: HEMOCYTE PLUS C1 CAP PO (11:56)
[2018-07-24] MEDS ORDERED: AMIODARONE HCL200 MG PO (11:56)
[2018-07-24] MEDS ORDERED: TESSALON PERLE100 MG PO (11:57)
[2018-07-24] MEDS ORDERED: ADVAIR 250-50 DISKUS INH (11:57)
[2018-07-24] MEDS ORDERED: MUCINEX600 MG PO (11:57)
[2018-07-24] MEDS ORDERED: COLACE100 MG PO (11:58)
[2018-07-24] MEDS ORDERED: FLORAJEN3 CAPS460 MG PO (11:58)
[2018-07-24] MEDS ORDERED: LEVOXYL100 MCG PO (11:59)
--- NOTE | 2018-07-24 13:55 | NUR ---
1045-DR MELENDEZ AT [facility]-SPOKE WITH PT AND -BOTH STATED REQUESTING DISCHARGE AND FOLLOW UP AT DR'S OFFICE THROUGHOUT WEEK-STATES NO DISTRESS- DR MELENDEZ SPOKE WITH DR DYER VIA TELEPHONE REGARDING ANTIBIOTIC AND PULMONARY REGIMAN-ORDER RECIEVED TO REMOVE PICC LINE : NURSING BENCH INSPECTOR NOTIFIED OF SAME -IN UNIT AND SUPERVISED REMOVAL PER PROTOCOL-NOTED 38CM-INITIAL LENGTH-NO SUTURES-REMOVED PER PROTOCOL WITH 38CM LENGTH-NO DEFORMITIES IN LINE NOTED-NO HEMATOMA -TOLERATED WELL- 1230-COMPLETED HOME DISCHARGE MEDICATION LIST AND SPOKE WITH PHARMACIST AT [facility]-CONFIRMED AVAILABILITY AND AUTHORIZATION- INFORMED OF SAME-DISCHARGE TEACHING GIVEN FOR INCISIONAL CARE-MEDICATION AND INCISIONAL 1315SENT HOME WITH MOTHER VIA WHEELCHAIR-PRESCRIPTIONS GIVEN
--- NOTE | 2018-07-26 13:06 | MORECARE ---
CASE MANAGEMENT DISCHARGE SUMMARY PATIENT: DINA AJ UNIT: [id number] ADM DATE: 07/12/18 AGE: 58 : 58 SEX: F ROOM/BED: D.03 AUTHOR: JAMIL TUCKER PHYSICIAN: REFERRING PHYSICIAN: FREDDY LAWSON MD DATE OF SERVICE: 07/26/18 Discharge Plan Patient Name: DINA AJ Facility: [facility]:[place] : 1960 Planned Disposition: Home Anticipated Discharge Date: 07/20/18 Discharge Date: 07/24/2018 Expected LOS: 8 Initial Reviewer: [email or web address] Initial Review Date: 07/18/2018 Generated: 07/26/18 2:06 pm DCP- Discharge Planning Updated by [email or web address]: Griselda Myers on 07/18/18 8:[address] Patient Name: DINA AJ Admission Status: Elective Accout number: [id number] Admission Date: 07-12-2018 : 1960 Admission Diagnosis:CHEST PAIN, UNSPECIFIED Attending: FREDDY LAWSON Current LOS: 6 Anticipated DC Date: 07-20-2018 Planned Disposition: Home Primary Insurance: [employer]AR[employer]AD Discharge Planning Comments: CM MET WITH PATIENT REGARDING D/C NEEDS AND PLANS. PATIENT STATED SHE LIVES WITH HER SPOUSE (KHARI) AND HE WILL DRIVE HER HOME AT DISCHARGE. PATIENT STATED SHE HAS 1 STEP TO ENTER HER HOME. PATIENT STATED SHE IS INDEPENDENT WITH HER CARE AND HAS NO DME AT HOME. PATIENTS PCP IS DR. LAWSON AND PHARMACY IS [facility]. PATIENT REFUSED HOME HEALTH AT THIS TIME. CM WILL CONTINUE TO FOLLOW PATIENT WITH D/C NEEDS AND PLANS. PCP [facility] (SPOUSE) [phone] Corporate Travel Expert: Griselda Myers DCPIA - Discharge Planning Initial Assessment Updated by [email or web address]: Griselda Myers on 07/18/18 9:19 am * Is the patient Alert and Oriented? Yes * How many steps to enter\exit or inside your home? * PCP DR. LAWSON * Pharmacy [facility] * Preadmission Environment Home with Family * ADLs Independent * Equipment None * List name and contact numbers for known caregivers / representatives who currently or will assist patient after discharge: Khari Aj (spouse) [phone] * Verbal permission to speak to the caregivers and representatives has been obtained from the patient. Yes * Community resources currently utilized None * Additional services required to return to the preadmission environment? Yes * Can the patient safely return to the preadmission environment? Yes * Has this patient been hospitalized within the prior 30 days at any hospital? No Last DP export: 07/18/18 8:25 a Patient Name: DINA AJ Page [id number] at 1306 All edits/amendments must be made on the electronic document DICTATION DATE: 07/26/18 1306 SALES SPECIAL AGENT: DM 07/26/18 1306 RPT#: [id number] DC DATE:07/24/18 STATUS: DIS IN [facility] [address] [place] [address] END OF REPORT
--- NOTE | 2018-07-27 14:26 | EC ---
PATIENT:DINA AJ DATE OF SERVICE: 07/12/18 SEX: F MEDICAL RECORD: [id number] DATE OF : 58 [facility] AGE OF PATIENT: 58 ADMISSION DATE: 07/12/18 REFERRING PHYSICIAN: INTERPRETING PHYSICIAN: DIRK CORTES MD ECHOCARDIOGRAM REPORT ECHO CHARGES 4 ECHO COMPLETE Date: 07/19/18 CLINICAL DIAGNOSIS: AFLUTTER ECHOCARDIOGRAPHIC MEASUREMENTS (adult normal given) AC root (d.<3.7cm) 3.1 cm LV Septum d (<1.2 cm> 0.9 cm Valve Excursion 1.5 cm LV Septum (systole) 1.3 cm Left Atria (s.<4.0cm> 2.6 cm LVPW d(<1.2cm) 0.6 cm RV (d.<2.3cm) 2.9 cm LVPW (sytole) 1.3 cm LV diastole(<5.6CM) 3.2 cm MV E-F(>70mm/sec) 2.0 cm LV systole 2.0 cm LVOT Diameter 1.5 cm MV exc.(>10mm) 1.1 cm Est.ejection fraction (50-75%) % DOPPLER: LVIT cm/sec A 73.0 cm/sec E 106 cm/sec LA cm/sec RVSP 21 mmHg LVOT 152 cm/sec AOP1/2T m/s Asc. Ao 65 cm/sec RVOT 100 cm/sec RA cm/sec PA 153 cm/sec AV Gradient Peak 10.95mmHg AV Mean 6.02 mmHg AV Area 1.6 cm MV Gradient Peak 6.02 mmHg MV Mean 2.74 mmHg MV Area cm COMMENTS: Chief Operating Officer: 2 DEBORAH MALIK Student Services Coordinator: 3 Dr. Mendoza TAPE# PACS Pericardial Effusion N DATE OF SERVICE: Adequate 2D, color flow, spectral Doppler, and M-Mode. No LVH. LV internal dimensions normal. All motion normal. EF is greater or equal to 55%. Aortic valve is tricuspid. No evidence of stenosis on Doppler interrogation. The left atrium is normal. Mitral valve shows no prolapse. Trace MR. Right-sided chamber grossly normal. Trace TR. From views present, cannot exclude a pin-hole PFO. This would be of no clinical significance given size. TRANSINT:[id number] Voice Confirmation ID: [id number] DOCUMENT ID: [id number] ECHOCARDIOGRAM REPORT [id number] DINA AJ,DIRK Gutierrez MD at 1426 CC: [id number] DICTATION DATE: 07/20/18813 MEETING/EVENT PLANNER: 07/20/18 1139 DIS IN 07/24/18 [place] [id number] [place] [id number]
--- NOTE | 2018-07-27 14:26 | CN ---
PATIENT NAME:DINA AJ MEDICAL RECORD: [id number] : [birth year] LOCATION:[facility] ADMIT DATE: 07/12/18 ACCOUNT: [id number] CONSULTING PHYSICIAN: DIRK CORTES MD REFERRING PHYSICIAN: FREDDY LAWSON MD DATE OF CONSULTATION: 07/19/2018 HISTORY OF PRESENT ILLNESS: A 58-year-old female with a history of a PFO. Historically this sounds, she has had intermittent arrhythmias, had an episode of atrial flutter. She is admitted with pneumonitis during this admission. She converted with IV diltiazem, does have a history of a small PFO. We are asked to see her concerning her cardiovascular status. PAST MEDICAL HISTORY: Includes: 1. A history of hypothyroidism. 2. Rheumatoid arthritis. MEDICATIONS: Typically include Synthroid 100 mcg every day, aspirin 81 every day, Aldactone 50 daily, Plaquenil 200 mg p.o. every day. ALLERGIES: SULFA. SOCIAL HISTORY: Nonsmoker, nondrinker. 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 Easily takes care of all her ADLs. REVIEW OF SYSTEMS: The patient reports easy bruising but reports no swollen glands. The patient reports no fever, no night sweats, no significant weight gain, no significant weight loss. No significant exercise tolerance. The patient reports no dry eyes, no irritation, no vision change. Patient reports no difficulty hearing and no ear pain. Patient reports no frequent nose bleeds or nose and sinus problems. Patient reports on arm pain on exertion. No shortness of breath while lying down. No history of heart murmur. Patient reports no cough, no wheezing or coughing up blood. Patient reports no abdominal pain, no vomiting. Normal appetite. No diarrhea and not vomiting blood. No nausea and no constipation. Patient reports no incontinence. No difficulty urinating. No hematuria. No increased frequency. Patient reports no muscle aches. No weakness, no arthralgias, no back pain. No swelling of the extremities. Patient reports no abnormal mole, no jaundice, no rashes. Reports no loss of consciousness. No weakness and no numbness. No seizures, dizziness, or headaches. The patient reports no depression, no sleep disturbance, feeling safe in a relationship and no alcohol abuse. Patient reports on fatigue. Reports no runny nose or sinus pressure. No itching, no hives, and no frequent sneezing. PHYSICAL EXAMINATION: GENERAL: Pleasant female in no acute distress, appears stated age. VITAL SIGNS: Blood pressure 109/64, pulse 79 and regular. HEENT: Normocephalic, atraumatic. NECK: No bruits are noted. HEART: Currently regular, II/ systolic ejection murmur. LUNGS: Good air excursion. ABDOMEN: Soft, nontender. EXTREMITIES: Pulses 2+ with no edema. IMPRESSION: Atrial flutter, converted nicely with IV diltiazem. This may be CONSULT REPORT [id number] DINA AJ secondary to underlying pneumonitis, empyema, with subsequent increased catacholmine drive, etc. Symptomology is somewhat worrisome for angina given her age, etc. We will plan for diagnostic angiography. Further recommendations based on the above. TRANSINT:[id number] Voice Confirmation ID: [id number] DOCUMENT ID: [id number] DIRK CORTES MD at 1426 CC: [id number] DICTATION DATE: 07/19/18 1137 MACHINE LAY OUT WORKER: 07/19/18 1228 DIS IN 07/24/18 [facility] [address] [place] [address]
--- NOTE | 2018-07-28 10:58 | OP ---
PATIENT NAME: DINA AJ MEDICAL RECORD: [id number] :58 LOCATION:.[facility] D.CV03 ADMISSION DATE:07/12/18 SURGEON: DENZEL CASANOVA MD DATE OF OPERATION: 07/21/2018 SURGEON: Denzel Casanova MD WIRE DRAWER: Tim Small. PROCEDURES PERFORMED: 1. Left video-assisted thoracoscopic surgery. 2. Left thoracotomy with total decortication. 3. Bronchoscopy. PREOPERATIVE DIAGNOSIS: Empyema. POSTOPERATIVE DIAGNOSIS: Empyema. ANESTHESIA: General endotracheal anesthesia, double lumen. SPECIMENS: Pleural peel. COMPLICATIONS: None. BLOOD LOSS: 50 cc. CONDITION: Stable. DISPOSITION: ICU. OPERATIVE FINDINGS: 1. Dense chronic-appearing adhesions along the medial part of the lingula and the lower lobe. Initial attempt at thoracoscopy was unsuccessful, so a small utility thoracotomy posteriorly was made. The lung was freed to the entire apex, but the dense adhesions, particularly along the pericardium, but also along the diaphragm were difficult to dissect without injury to the diaphragm lung or pericardium; therefore, the utility thoracotomy was converted to a larger thoracotomy with direct visualization and takedown of the adhesions. Removal of all visceral and parietal peel. Thorough irrigation and application of Progel and 1 air leak site in the lingula with good reexpansion of the lung with 2 chest tubes placed. 2. Bronchoscopy with no endobronchial lesions. INDICATIONS: Empyema not responsive to intrapleural thrombolytics and chest tube. PROCEDURE IN DETAIL: The patient was brought to the operative suite. General anesthesia was obtained, the patient was prepped and draped. The patient was turned in left lateral decubitus position with appropriate padding. Thoracoscopy was performed through anterior hole, but unable to enter a clear space of the chest. Therefore, posteriorly an incision was made. Lung was taken down up to the scope, which was directed anteriorly and apically and all adhesions were taken down. None appeared too chronic in the apex except for the one at the very upper part of the apex and then distally as noted above. Dense adhesions of the utility thoracotomy extended by taking a small section of the OPERATIVE REPORT [id number] DINA AJ 6th rib posteriorly allowing a trapdoor type entry and all bits of debris were removed after the lung was completely freed up to the hilum. Hemostasis was assured. Thorough irrigation was undertaken. Lung was reexpanded. Two small air leak sites were repaired and Progel was used. Chest tube was placed at the apex and posteriorly. Then, with the lung reexpanded, the lung was closed with pericostal sutures running, the muscle layer suture, subcutaneous and subcuticular. Dermabond was placed. The patient returned to the supine position after needle, sponge counts reported as correct and dressing was placed and a single lumen tube was placed. Bronchoscopy was performed with no endobronchial lesions. TRANSINT:[id number] Voice Confirmation ID: [id number] DOCUMENT ID: [id number] DENZEL CASANOVA MD at 1058 CC: [id number] DICTATION DATE: 07/21/18 1659 DIRECTOR INSTITUTION: 07/22/18 0026 DIS IN 07/24/18 [place] [id number] [place] [address]
== END 2018-07-24 14:08 | disposition home or self-care (01) | DRG 163 ==
LOC: D.CVICU 16:11 → D.M2 16:11 → D.CVICU 07-20 11:30
PROVIDERS: General Practice; Internal Medicine Cardiovascular Disease; Internal Medicine Pulmonary Disease; Specialist; Thoracic Surgery (Cardiothoracic Vascular Surgery); ADMIT Family Medicine; ATTEND Family Medicine
PROC: 0W9B30Z Drainage of Left Pleural Cavity with Drainage Device, Percutaneous Approach (ICD-10-PCS; principal; 2018-07-15 09:45)
PROC: 02HV33Z Insertion of Infusion Device into Superior Vena Cava, Percutaneous Approach (ICD-10-PCS; 2018-07-20)
PROC: B548ZZA Ultrasonography of Superior Vena Cava, Guidance (ICD-10-PCS; 2018-07-20)
PROC: 0BJ08ZZ Inspection of Tracheobronchial Tree, Via Natural or Artificial Opening Endoscopic (ICD-10-PCS; 2018-07-21)
PROC: 0BNL4ZZ Release Left Lung, Percutaneous Endoscopic Approach (ICD-10-PCS; 2018-07-21 07:30)
PROC: 0BNJ0ZZ Release Left Lower Lung Lobe, Open Approach (ICD-10-PCS; 2018-07-21 07:30)
DX: J86.9 Pyothorax without fistula (principal); J18.1 Lobar pneumonia, unspecified organism; J47.0 Bronchiectasis with acute lower respiratory infection; J90 Pleural effusion, not elsewhere classified; J98.11 Atelectasis; J95.812 Postprocedural air leak; Q21.1 Atrial septal defect; B37.0 Candidal stomatitis; E03.9 Hypothyroidism, unspecified; M06.9 Rheumatoid arthritis, unspecified; M81.0 Age-related osteoporosis without current pathological fracture; E87.6 Hypokalemia; K59.00 Constipation, unspecified

== ENCOUNTER → 2018-07-29 11:03 | Outpatient (CLI) | payer OTHER ==
[~2018-07-29 11:03] MED LIST: ADVAIR 250-50 DISKUS INH; AMIODARONE HCL200 MG PO; AUGMENTIN 875-11 TAB PO; BAYER CHEWABLE81 MG PO; COLACE100 MG PO; FLORAJEN3 CAPS460 MG PO; HEMOCYTE PLUS C1 CAP PO; LEVOXYL100 MCG PO; MUCINEX600 MG PO; Nystatin Oral Susp [ PO; TESSALON PERLE100 MG PO
[2018-07-29 11:51] LABS: HEMATOCRIT 29.4 % (36.0-48.0); HEMOGLOBIN 9.8 g/dL (12-16); MCH 30.9 pg (26.0-34.0); MCHC 33.3 g/dL (31.0-37.0); MCV 92.7 fL (80.0-100.0); MEAN PLATELET VOLUME 8.9 fL (7.4-10.4); RBC 3.17 10x6/uL (4.00-5.40); RDW 16.3 % (11.5-14.5); WBC 11.2 10x3/uL (4.8-10.8)
== END | disposition home or self-care (01) ==
LOC: D.RAD 11:03
PROVIDERS: ATTEND Thoracic Surgery (Cardiothoracic Vascular Surgery)
DX: J90 Pleural effusion, not elsewhere classified (principal); D64.9 Anemia, unspecified

== ENCOUNTER → 2018-08-11 16:02 | Outpatient (CLI) | payer OTHER | END | disposition home or self-care (01) | LOC: D.RAD 08-09 09:30 | PROVIDERS: ATTEND Internal Medicine Pulmonary Disease | DX: J90 Pleural effusion, not elsewhere classified (principal) ==

== ENCOUNTER → 2018-09-21 08:32 | Outpatient (CLI) | payer OTHER | END | disposition home or self-care (01) | LOC: D.CT 08:30 | PROVIDERS: ATTEND Internal Medicine Pulmonary Disease | DX: J90 Pleural effusion, not elsewhere classified (principal) ==

== ENCOUNTER → 2018-10-15 08:25 | Outpatient (CLI) | payer OTHER | END | disposition home or self-care (01) | LOC: D.RT 08:25 | PROVIDERS: ATTEND Internal Medicine Pulmonary Disease | DX: Z87.01 Personal history of pneumonia (recurrent) (principal) ==